=== PATIENT | male | born 1945 | race Caucasian/White ===

== ENCOUNTER 2017-08-02 14:22 | Inpatient (IN) ==
--- NOTE | 2017-08-02 03:13 | Internal Med History&Physical ---
Date of Encounter: 08/02/17 Time of Encounter: 02:30 Assessment and Plan (1) Sepsis Current visit: Yes Status: Acute Patient has fever and leukocytosis. Meet criteria of sepsis. 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 Patient is on chemotherapy now for lung cancer , high risk of infection. - We will treat patient with the Vanco and Zosyn. - IV fluid. Tract lactic acid. - Blood cultures sent from [place] emergency room. Follow-up results Patient is at high risk because he is on vancomycin, need close monitoring. Qualifiers: Sepsis type: sepsis due to unspecified organism Qualified Code(s): A41.9 - Sepsis, unspecified organism (2) Diabetes Current visit: Yes Status: Acute Patient denies diabetes, but his old chart shows hemoglobin A1c 6.7. He is on glipizide on his home medication list (unverified). Consider diabetes. - We will cover patient with sliding-scale, diabetic diet. Qualifiers: Diabetes mellitus type: type 2 Diabetes mellitus complication status: with kidney complications Diabetes mellitus complication detail: with chronic kidney disease Diabetes mellitus afterschool babysitter insulin use: without fci use Chronic kidney disease stage: stage 3 (moderate) Qualified Code(s): E11.22 - Type 2 diabetes mellitus with diabetic chronic kidney disease; N18.3 - Chronic kidney disease, stage 3 (moderate) (3) KELECHI (acute kidney injury) Current visit: Yes Status: Acute Patient has history of CKD. Creatinine level is higher than baseline now. Continue IV fluid. Follow renal function. (4) CAD (coronary artery disease) Current visit: No Status: Acute S/P stent. no chest pain. Continue aspirin and Plavix. Other home medication will be continued after verification Qualifiers: Coronary Disease-Associated Artery/Lesion type: [place] artery [place] vs. transplanted heart: [place] heart Associated angina: with unstable angina Qualified Code(s): I25.110 - Atherosclerotic heart disease of [place] coronary artery with unstable angina pectoris (5) Pneumonia Current visit: No Status: Acute Patient has lung cancer. Probably fever caused by obstructive pneumonia. Chest x-ray shows consolidation. - Continue Vanco and Zosyn - Oxygen supportive treatment. Qualifiers: Pneumonia type: due to Pneumococcus Laterality: unspecified laterality Lung location: unspecified part of lung Qualified Code(s): J13 - Pneumonia due to Streptococcus pneumoniae (6) UTI (urinary tract infection) Current visit: No Status: Acute Asymptomatic. Patient is covered by antibiotics now. Follow urine culture. Qualifiers: Urinary tract infection type: acute cystitis Hematuria presence: without hematuria Qualified Code(s): N30.00 - Acute cystitis without hematuria (7) Lung cancer Current visit: No Status: Chronic Patient is on chemotherapy and is following with oncologist as outpatient now Qualifiers: Laterality: right Lung location: unspecified part of lung Qualified Code( s): C34.91 - Malignant neoplasm of unspecified part of right bronchus or lung (8) DVT prophylaxis Current visit: Yes Status: Acute Heparin subcutaneously Internal Medicine - H&P: HPI Chief complaint: Fever Admitted From: Home Plans for Post Hospital Care: Home History of present illness: Mr. Soto is a 71 year old male with history of CAD S/P 3 stents, CLL, diabetes , stage IV lung cancer presented to [place] emergency room for fever. Patient now complains generalized weakness from today. Has a fever with temperature 103.9. Patient denies cough, sore throat, runny nose, abdominal pain, headache, nausea, vomiting, dysuria, increased frequency or urgency. Patient complain mild shortness of breath but the level is at his baseline. Patient denies altered mental status or confusion. Patient denies chest pain. Patient denies any wound or skin rupture/infection. Past Med Surg Social Fam HX - Past Medical History Medical history: arthritis, cancer, CHF, COPD, coronary artery disease, GERD, hyperlipidemia, hypertension, myocardial infarction, renal disease, other Psychiatric history: no psych history - Past Surgical History Surgical History: appendectomy, other - Social History Smoking Status: Former smoker Smokeless Tobacco Status: No Alcohol use: none Drug use: none - Family History Father Hx Family Endocrine Disorder: Yes (diabetes) Mother Adopted: No Twin of Family Member: Yes, Fraternal Living Status: Still Living Cause of : heart attack Hx Family Cardiac Disorders: Yes Hx Family Respiratory Disorders: No Hx Family Cancer: No Hx Family GI Disorders: No Hx Family Genitourinary Disorders: No Hx Family Endocrine Disorder: Yes (diabetes) Hx Family Musculoskeletal Disorders: No Hx Family Neuromuscular Disorders: No Hx Family Neurologic Disorders: No Hx Family HEENT Disorders: No Hx Family Autoimmune Disorders: No Hx Family Reproductive Disorders: No Hx Family Psychosocial Disorders: No Hx Family Medical Disorders: No Internal Medicine - H&P: Meds Budesonide/Formoterol 160/4.5 [Symbicort] 2 puff IH BID #1 inhaler 07/05/15 [Rx] Clopidogrel [Plavix] 75 mg PO DAILY 07/05/15 [History] Tiotropium [Spiriva] 18 mcg IH DAILY #1 inh 07/05/15 [Rx] dilTIAZem HCl [Cardizem] 60 mg PO Q8HR #60 tablet 07/05/15 [Rx] Ondansetron HCl [Zofran] 4 mg PO Q4-6H PRN 10/17/15 [History] Aspirin 81 mg PO DAILY #30 tab.chew 04/14/16 [Rx] Atorvastatin [Lipitor] 80 mg PO HS #30 tablet 04/14/16 [Rx] Metoprolol [Lopressor] 50 mg PO BID #60 tablet 04/14/16 [Rx] Nitroglycerin 0.4 mg SL Q5MIN PRN #30 tab.subl 04/14/16 [Rx] Benzonatate [Tessalon] 200 mg PO DAILY PRN 06/07/16 [History] Docusate [Colace] 100 mg PO DAILY 06/07/16 [History] Guaifenesin [Mucinex] 600 mg PO BID 06/07/16 [History] Lactobacillus Acidophilus [Acidophilus Probiotic] 1 mg PO DAILY 06/07/16 [ History] Lactulose [Kristalose] 20 gm PO AD 06/07/16 [History] Loratadine [Claritin] 10 mg PO DAILY 06/07/16 [History] Pantoprazole Sodium [Protonix] 40 mg PO DAILY 06/07/16 [History] Polyethylene Glycol 1000 [Polyethylene Glycol] 500 gm PO DAILY 06/07/16 [History ] Albuterol Sulfate [Albuterol Inhaler] 1 puff IH AD 08/03/16 [History] Potassium Chloride [Klor-Con 10] 10 meq PO DAILY 01/27/17 [History] glipiZIDE [Glucotrol] 2.5 mg PO BIDWM 01/27/17 [History] Furosemide [Lasix] 20 mg PO DAILY 03/18/17 [History] LORazepam [Ativan] 1 mg PO TID PRN 07/30/17 [History] Meclizine HCl 25 mg PO Q8H PRN 07/30/17 [History] Aspirin [Lo-Dose Aspirin EC] 81 mg PO DAILY 08/01/17 [History] 3 Allergy/AdvReac Type Severity Reaction Status Date / Time ipratropium [From DuoNeb] AdvReac Vomiting Verified 07/30/17 15:06 roflumilast [From Daliresp] AdvReac Vomiting Verified 07/30/17 15:06 All Systems PM: A 10-system review of systems was performed and is negative for pertinent findings except as documented above in the HPI. - Constitutional Vitals: Temp Pulse Resp BP Pulse Ox 97.6 F 76 20 110/63 96 08/02/17 01:43 08/02/17 01:43 08/02/17 01:43 08/02/17 01:43 08/02/17 01:43 General appearance: Present: A&O X 3, no acute distress, answers questions appropriately - Head Head exam: Present: atraumatic, normocephalic - Eye Eye exam: Present: PERRL, conjuntiva pink, sclera anicteric Pupils: Present: PERRL - Neck Neck exam general surgery: Present: supple, trachea midline. Absent: lymphadenopathy - Respiratory Respiratory exam: Present: CTAB, rhonchi, wheezes (Scattered wheezes and rhonchi bilaterally). Absent: accessory muscle use, rales - Cardiovascular Cardiovascular exam: Present: RRR, +S1, +S2. Absent: diastolic murmur, gallop, rubs, systolic murmur - GI/Abdominal GI/Abdominal exam: Present: normal bowel sounds, soft, no peritoneal signs. Absent: distended, tenderness - Extremities Exam Extremities exam: Present: warm, radial pulses palpable and symmetrical. Absent : calf tenderness, cyanotic, pedal edema - Neurological Exam Neurological exam: Present: CN II-XII intact, oriented X3, no focal deficits. Absent: pronater drift, facial droop, speech deficit - Skin Skin exam: Present: dry, intact
[2017-08-02] MEDS: 0.9 % Sodium Chloride 1,000 ML IVC SCH ×2 (05:23→15:29)
[2017-08-02] MEDS: *HR* Heparin 5,000 UNIT/ML VIAL SQ SCH ×2 (05:24→17:07)
[2017-08-02 06:32] LABS: Basophils % 0.3 %; Eosinophils # 0.3 K/mcL (0.0-0.6); Eosinophils % 2.2 %; Hematocrit 30.8 % (37.5-50.1); Hemoglobin 9.1 g/dL (12.9-16.9); Immature Granulocytes % 0.9 % (0-4); Lymphocytes # 6.7 K/mcL (0.6-4.6); Lymphocytes % 54.6 %; Mean Corpuscular HGB Conc 29.5 g/dL (31.6-35.5); Mean Corpuscular Hemoglobin 25.3 pg (28.0-33.3); Mean Corpuscular Volume 85.8 fL (83.0-100.0); Mean Platelet Volume 9.7 fL (9.4-12.4); Monocytes # 0.5 K/mcL (0.0-1.3); Monocytes % 4.2 %; Neutrophils # 4.6 K/mcL (1.6-8.9); Platelet Count 136 K/mcL (140-400); Red Blood Count 3.59 M/mcL (4.19-5.50); Red Cell Distribution Width 16.4 % (11.5-14.5); Segmented Neutrophils % 37.8 %
[2017-08-02 06:42] LABS: BUN/Creatinine Ratio 20 (6-26); Blood Urea Nitrogen 28 mg/dL (8-26); Calcium 7.8 mg/dL (8.6-10.8); Carbon Dioxide 26 mEq/L (19-29); Chloride 107 mEq/L (98-109); Glucose 88 mg/dL (70-99); Magnesium 1.4 mg/dL (1.6-2.6); Osmolality,Calculated 291 (280-300); Potassium 3.9 mEq/L (3.5-4.5); Sodium 138 mEq/L (136-145); eGFR For African Americans > 60 (> 60); eGFR For Non-African Americans 50 (> 60)
[2017-08-02] MEDS: Insulin LISPRO 300 UNITS/3 ML VIAL SQ SCH ×4 (07:27→21:25)
--- NOTE | 2017-08-02 08:22 | Event Note ---
<Yannick Duran - Last Filed: 08/02/17 09:21> Date of Encounter: 08/02/17 Time of Encounter: 08:39 Patient seen and examined by me. Patient reports He felt weak, had a fever, and malaise. He was seen at [place] [facility] and transferred to [facility] for further treatment and work up. Per daughter Patient was recently on steroids a couple weeks ago, was on levaquin until Wednesday for a pneumonia, and was last seen by oncology at the beginning of the month. Patient reports feeling a bit better. No more fevers (was 103.9 at [place]). Patient on Vanc and Zosyn. Bcx drawn at [place]. On exam Lungs scattered rhonnchi and weezes. heart RRR no m/g/r. No pedal edema. L pupil is larger than R pupil this is an old change 2/2 cataract surgery on L eye. Eyes reactive to light. Abd: +BS, soft nontender. Continue current plan. Will restart patient's home medications. <Juan Monaco - Last Filed: 08/02/17 15:49> Date of Encounter: 08/02/17 Mr. Soto was admitted earlier today with fever presumed associated with pneumonia and/or UTI. His BP has been high at times. Exam Comfortable currently Scant wheeze Agree with plan as outlined so far.
[2017-08-02] MEDS: Magnesium Oxide 400 MG TABLET PO SCH ×2 (08:25→21:19)
[2017-08-02] MEDS: Aspirin 81 MG TAB.CHEW PO SCH (08:25)
[2017-08-02] MEDS: *HR* LORazepam 0.5 MG TABLET PO PRN ×2 (10:35→17:07)
[~2017-08-02 14:22] MED LIST: *HR* Dextrose 50 % in Water (Syg) 50 ML SYRINGE IVP PRN; Acetaminophen 325 MG TABLET PO PRN; D5% in Water 1,000 ML IVC PRN; Dextrose Gel 15 GM PO PRN; Naloxone 0.4 MG/ML INJ IVP PRN; Piperacillin/Tazobactam 3.375 GM in D5% in Water (Mini-Bag+) 100 ML IVPB SCH; Vancomycin 1,250 MG in D5% in Water 250 ML IVPB SCH
[2017-08-02] MEDS: Piperacillin/Tazobactam 3.375 GM in D5% in Water (Mini-Bag+) 100 ML IVPB SCH (15:28)
[2017-08-02] MEDS: Tiotropium 18 MCG inhalation IH SCH ×2 (16:15→17:32)
[2017-08-02] MEDS: Budesonide/Formoterol 160/4.5 MDI IH SCH (21:05)
[2017-08-02] MEDS: Acetaminophen 325 MG TABLET PO PRN (21:19)
[2017-08-02] MEDS: Vancomycin 1,250 MG in D5% in Water 250 ML IVPB SCH (21:20)
[2017-08-03] MEDS: Piperacillin/Tazobactam 3.375 GM in D5% in Water (Mini-Bag+) 100 ML IVPB SCH ×3 (00:06→15:30)
[2017-08-03] MEDS: *HR* Heparin 5,000 UNIT/ML VIAL SQ SCH (06:44)
[2017-08-03 07:20] LABS: BUN/Creatinine Ratio 20 (6-26); Blood Urea Nitrogen 25 mg/dL (8-26); Calcium 8.7 mg/dL (8.6-10.8); Carbon Dioxide 23 mEq/L (19-29); Chloride 106 mEq/L (98-109); Glucose 129 mg/dL (70-99); Magnesium 1.6 mg/dL (1.6-2.6); Osmolality,Calculated 292 (280-300); Potassium 4.5 mEq/L (3.5-4.5); Sodium 138 mEq/L (136-145); eGFR For African Americans > 60 (> 60); eGFR For Non-African Americans 57 (> 60)
[2017-08-03 07:29] LABS: Hematocrit 31.8 % (37.5-50.1); Hemoglobin 9.6 g/dL (12.9-16.9); Mean Corpuscular HGB Conc 30.2 g/dL (31.6-35.5); Mean Corpuscular Hemoglobin 25.4 pg (28.0-33.3); Mean Corpuscular Volume 84.1 fL (83.0-100.0); Mean Platelet Volume 9.6 fL (9.4-12.4); Platelet Count 149 K/mcL (140-400); Red Blood Count 3.78 M/mcL (4.19-5.50); Red Cell Distribution Width 16.6 % (11.5-14.5)
[2017-08-03] MEDS: Aspirin 81 MG TAB.CHEW PO SCH (07:29)
[2017-08-03] MEDS: Magnesium Oxide 400 MG TABLET PO SCH ×2 (07:29→22:31)
[2017-08-03] MEDS: Tiotropium 18 MCG inhalation IH SCH (07:48)
[2017-08-03] MEDS: Budesonide/Formoterol 160/4.5 MDI IH SCH ×2 (07:49→20:11)
[2017-08-03] MEDS: Insulin LISPRO 300 UNITS/3 ML VIAL SQ SCH ×3 (07:59→16:47)
[2017-08-03 09:00] LABS: Eosinophils # 0.3 K/mcL (0.0-0.6); Lymphocytes # 6.1 K/mcL (0.6-4.6); Monocytes # 1.5 K/mcL (0.0-1.3); Neutrophils # 6.7 K/mcL (1.6-8.9)
[2017-08-03 09:02] LABS: Platelet Estimate Normal (Normal)
[2017-08-03 09:03] LABS: Anisocytosis 1+ (Not Present); Poikilocytosis 1+ (Not Present)
[2017-08-03] MEDS: *HR* LORazepam 0.5 MG TABLET PO SCH ×4 (09:03→22:31)
--- NOTE | 2017-08-03 09:22 | Internal Med Progress Note ---
<TerencekwesigriselYannick guadarrama - Last Filed: 08/03/17 16:35> Date of Encounter: 08/03/17 Time of Encounter: 09:00 - Assessment and plan (1) Sepsis Current Visit: Yes Status: Acute Assessment and plan: Present on admission. Has chronic leukocytosis due to CLL, has been tachycardic and febrile. concern for pneumonia or UTI on admission, appearing less likely now. Patient on chemotherapy for Lung cancer Continue vanc and zosyn BCx preliminarily negaitve. Ucx negative. If remains afebrile till tomorrow will discharge home. Qualifiers: Sepsis type: sepsis due to unspecified organism Qualified Code(s): A41.9 - Sepsis, unspecified organism (2) UTI (urinary tract infection) Current Visit: No Status: Acute Assessment and plan: Present on admission asymptomatic per patient UA showed: Small leuk esterase, 3-5 RBC, 5-15 WBC, moderate Bacteria. Ucx: Negative. No growth. Patient on Vanc and Zosyn Qualifiers: Urinary tract infection type: acute cystitis Hematuria presence: without hematuria Qualified Code(s): N30.00 - Acute cystitis without hematuria (3) Pneumonia Current Visit: No Status: Acute Assessment and plan: Present upon admission likely post obstructive 2/2 lung CA CXR shows: Subtle right apical consolidation corresponding to findings on prior CT as well as somewhat less conspicuous nodular lesion of the left upper lobe. Chronic interstitial opacities bilaterally. No new pulmonary opacities are identified. Continue abx vanc and zosyn for presumptive penumonia Qualifiers: Pneumonia type: due to unspecified organism Laterality: unspecified laterality Lung location: unspecified part of lung Qualified Code(s): J18.9 - Pneumonia, unspecified organism (4) Diabetes Current Visit: Yes Status: Acute Assessment and plan: Chronic, Stable. Continue SSI diabetic diet Acuchecks. Qualifiers: Diabetes mellitus type: type 2 Diabetes mellitus complication status: with kidney complications Diabetes mellitus complication detail: with chronic kidney disease Diabetes mellitus supervisor intermediates insulin use: without jail use Chronic kidney disease stage: stage 3 (moderate) Qualified Code(s): E11.22 - Type 2 diabetes mellitus with diabetic chronic kidney disease; N18.3 - Chronic kidney disease, stage 3 (moderate) (5) KELECHI (acute kidney injury) Current Visit: Yes Status: Acute Assessment and plan: resolved Hx of CKD. Cr higher than baseline. Baseline 1.3, 1.6 on admission, now 1.25 (6) CAD (coronary artery disease) Current Visit: No Status: Acute Assessment and plan: Chronic, Stable No chest pain. Continue home meds Qualifiers: Coronary Disease-Associated Artery/Lesion type: [place] artery [place] vs. transplanted heart: [place] heart Associated angina: with unstable angina Qualified Code(s): I25.110 - Atherosclerotic heart disease of [place] coronary artery with unstable angina pectoris (7) Lung cancer Current Visit: No Status: Chronic Assessment and plan: On chemotherapy following with oncology Qualifiers: Laterality: right Lung location: unspecified part of lung Qualified Code( s): C34.91 - Malignant neoplasm of unspecified part of right bronchus or lung (8) CLL (chronic lymphocytic leukemia) Current Visit: Yes Status: Acute Assessment and plan: Chronic follows with oncology. - Subjective Interval history: Patient reports feeling ok. He denies CP, SOB, Abd pain, Fevers, chills. Patient was febrile and tachycardic yesterday afternoon. Patient wants to go home. Explained that he needs to stay because he has been febrile and tachycardic and he expressed understanding. I have made his ativan standing as he is very tremulous and anxious. - Constitutional Vitals: Temp Pulse Resp BP Pulse Ox 97.7 F 81 18 144/69 94 08/03/17 07:03 08/03/17 07:03 08/03/17 07:50 08/03/17 07:03 08/03/17 07:50 General appearance: Present: A&O X 3, no acute distress, answers questions appropriately - Head Head exam: Present: atraumatic, normocephalic - Eye Eye exam: Present: conjuntiva pink, sclera anicteric Additional comments: L Pupil > R pupil. Chronic 2/2 cataract surgery - Neck Neck exam general surgery: Present: supple, trachea midline - Respiratory Respiratory exam: Present: wheezes. Absent: accessory muscle use, rales, rhonchi - Cardiovascular Cardiovascular exam: Present: RRR, +S1, +S2. Absent: diastolic murmur, gallop, rubs, systolic murmur - GI/Abdominal GI/Abdominal exam: Present: normal bowel sounds, soft, no peritoneal signs. Absent: distended, tenderness - Extremities Exam Extremities exam: Present: warm. Absent: calf tenderness, cyanotic, pedal edema - Neurological Exam Neurological exam: Present: alert, oriented X3. Absent: facial droop, speech deficit - Skin Skin exam: Present: dry, intact Internal Medicine: Result - Labs CBC & Chem 7: 08/03/17 07:00 08/03/17 07:00 Labs: Short CBC 08/03/17 Range/Units 07:00 WBC 14.5 H (4.3-11.1) K/mcL Hgb 9.6 L (12.9-16.9) g/dL Hct 31.8 L (37.5-50.1) % Plt Count 149 (140-400) K/mcL Neutrophils # 6.7 (1.6-8.9) K/mcL BMP 08/03/17 07:00 Sodium 138 Potassium 4.5 Chloride 106 Carbon Dioxide 23 BUN 25 Creatinine 1.25 Glucose 129 H Calcium 8.7 Consult Discharge Plan - Plan Referrals: Gideon Eaton MD [Primary Care Provider] - (Web request sent 08/02/17) <Juan Monaco - Last Filed: 08/03/17 18:41> Date of Encounter: 08/03/17 - Assessment and plan (1) Pneumonia Current Visit: No Status: Acute Qualifiers: Pneumonia type: due to other aerobic Gram-negative bacteria Laterality: unspecified laterality Lung location: unspecified part of lung Qualified Code(s): J15.6 - Pneumonia due to other aerobic Gram-negative bacteria (2) UTI (urinary tract infection) Current Visit: No Status: Acute Qualifiers: Urinary tract infection type: acute cystitis Hematuria presence: without hematuria Qualified Code(s): N30.00 - Acute cystitis without hematuria (3) CLL (chronic lymphocytic leukemia) Current Visit: Yes Status: Acute (4) Diabetes Current Visit: Yes Status: Acute Qualifiers: Diabetes mellitus type: type 2 Diabetes mellitus complication status: with kidney complications Diabetes mellitus complication detail: with chronic kidney disease Diabetes mellitus jail insulin use: without jail use Chronic kidney disease stage: stage 3 (moderate) Qualified Code(s): E11.22 - Type 2 diabetes mellitus with diabetic chronic kidney disease; N18.3 - Chronic kidney disease, stage 3 (moderate) (5) CAD (coronary artery disease) Current Visit: No Status: Acute Qualifiers: Coronary Disease-Associated Artery/Lesion type: [place] artery [place] vs. transplanted heart: [place] heart Associated angina: without angina Qualified Code(s): I25.10 - Atherosclerotic heart disease of [place] coronary artery without angina pectoris - Constitutional Vitals: Temp Pulse Resp BP Pulse Ox 99.1 F 101 17 153/71 91 08/03/17 16:26 08/03/17 16:26 08/03/17 16:26 08/03/17 16:26 08/03/17 16:26 Internal Medicine: Result - Labs CBC & Chem 7: 08/03/17 07:00 08/03/17 07:00 Labs: Short CBC 08/03/17 Range/Units 07:00 WBC 14.5 H (4.3-11.1) K/mcL Hgb 9.6 L (12.9-16.9) g/dL Hct 31.8 L (37.5-50.1) % Plt Count 149 (140-400) K/mcL Neutrophils # 6.7 (1.6-8.9) K/mcL BMP 08/03/17 07:00 Sodium 138 Potassium 4.5 Chloride 106 Carbon Dioxide 23 BUN 25 Creatinine 1.25 Glucose 129 H Calcium 8.7 - Attending Attestation I examined this patient and my medical decision-making was reviewed with the Resident Physician on 08/03/17. I agree with the documented findings, disposition and treatment plan as described except to the extent set forth below. Mr Soto is currently in observation due to fever and presumptive pneumonia in the setting of lung cancer. He remains moderate to high risk due to potential for worsening respiratory status. Mr Soto feels OK. He wants to go home. He has not had fever since yesterday. Cultures pending. No chills. No CP or SOB. Exam Alert. Comfortable Mucus membranes dry Heart reg No wheeze. Lungs diminished. Abd soft Tremor present. I/P 1. Fever 2. Pneumonia Further diagnoses and plan as above.
[2017-08-03] MEDS ORDERED: *HR* LORazepam 0.5 MG TABLET PO PRN ×2 (13:27→13:30)
[2017-08-03] MEDS: Acetaminophen 325 MG TABLET PO PRN ×2 (15:30→22:36)
[2017-08-03] MEDS: Vancomycin 1,250 MG in D5% in Water 250 ML IVPB SCH (22:34)
[2017-08-04] MEDS: Piperacillin/Tazobactam 3.375 GM in D5% in Water (Mini-Bag+) 100 ML IVPB SCH ×3 (00:31→14:40)
[2017-08-04] MEDS: Insulin LISPRO 300 UNITS/3 ML VIAL SQ SCH ×4 (00:35→17:23)
[2017-08-04 04:48] LABS: Basophils % 0.3 %; Eosinophils # 0.2 K/mcL (0.0-0.6); Eosinophils % 1.9 %; Hematocrit 28.6 % (37.5-50.1); Hemoglobin 8.7 g/dL (12.9-16.9); Immature Granulocytes % 0.6 % (0-4); Lymphocytes # 5.7 K/mcL (0.6-4.6); Lymphocytes % 49.7 %; Mean Corpuscular HGB Conc 30.4 g/dL (31.6-35.5); Mean Corpuscular Hemoglobin 25.1 pg (28.0-33.3); Mean Corpuscular Volume 82.4 fL (83.0-100.0); Mean Platelet Volume 10.1 fL (9.4-12.4); Monocytes # 0.5 K/mcL (0.0-1.3); Monocytes % 3.9 %; Platelet Count 167 K/mcL (140-400); Red Blood Count 3.47 M/mcL (4.19-5.50); Red Cell Distribution Width 16.6 % (11.5-14.5); Segmented Neutrophils % 43.6 %
[2017-08-04 04:59] LABS: BUN/Creatinine Ratio 21 (6-26); Blood Urea Nitrogen 23 mg/dL (8-26); Calcium 8.9 mg/dL (8.6-10.8); Carbon Dioxide 27 mEq/L (19-29); Chloride 104 mEq/L (98-109); Glucose 140 mg/dL (70-99); Magnesium 1.5 mg/dL (1.6-2.6); Osmolality,Calculated 290 (280-300); Potassium 4.4 mEq/L (3.5-4.5); Sodium 137 mEq/L (136-145); eGFR For African Americans > 60 (> 60); eGFR For Non-African Americans > 60 (> 60)
[2017-08-04 05:14] LABS: Large Platelets Present (Not Present); Platelet Estimate Normal (Normal); Reactive Lymphocytes Present (Not Present)
[2017-08-04] MEDS: *HR* Heparin 5,000 UNIT/ML VIAL SQ SCH ×2 (06:11→07:32)
[2017-08-04] MEDS: Tiotropium 18 MCG inhalation IH SCH (08:19)
[2017-08-04] MEDS: Budesonide/Formoterol 160/4.5 MDI IH SCH (08:20)
[2017-08-04] MEDS: Aspirin 81 MG TAB.CHEW PO SCH (09:21)
[2017-08-04] MEDS: Magnesium Oxide 400 MG TABLET PO SCH (09:22)
[2017-08-04] MEDS: *HR* LORazepam 0.5 MG TABLET PO SCH ×3 (09:24→17:14)
--- NOTE | 2017-08-04 10:11 | Discharge Summary ---
<Yannick Duran - Last Filed: 08/04/17 16:49> Date of Encounter: 08/04/17 Time of Encounter: 09:30 - Discharge Diagnosis (1) Sepsis Priority: Primary Status: Acute Qualifiers: Sepsis type: sepsis due to unspecified organism Qualified Code(s): A41.9 - Sepsis, unspecified organism (2) UTI (urinary tract infection) Priority: Secondary Status: Acute Qualifiers: Urinary tract infection type: acute cystitis Hematuria presence: without hematuria Qualified Code(s): N30.00 - Acute cystitis without hematuria (3) Pneumonia Priority: Secondary Status: Acute Qualifiers: Pneumonia type: due to other aerobic Gram-negative bacteria Laterality: unspecified laterality Lung location: unspecified part of lung Qualified Code(s): J15.6 - Pneumonia due to other aerobic Gram-negative bacteria (4) Diabetes Priority: Secondary Status: Chronic Qualifiers: Diabetes mellitus type: type 2 Diabetes mellitus complication status: with kidney complications Diabetes mellitus complication detail: with chronic kidney disease Diabetes mellitus [facility] insulin use: without [facility] use Chronic kidney disease stage: stage 3 (moderate) Qualified Code(s): E11.22 - Type 2 diabetes mellitus with diabetic chronic kidney disease; N18.3 - Chronic kidney disease, stage 3 (moderate) (5) KELECHI (acute kidney injury) Priority: Secondary Status: Resolved (6) CAD (coronary artery disease) Priority: Secondary Status: Chronic Qualifiers: Coronary Disease-Associated Artery/Lesion type: [place] artery [place] vs. transplanted heart: [place] heart Associated angina: without angina Qualified Code(s): I25.10 - Atherosclerotic heart disease of [place] coronary artery without angina pectoris (7) Lung cancer Priority: Secondary Status: Chronic Qualifiers: Laterality: right Lung location: unspecified part of lung Qualified Code( s): C34.91 - Malignant neoplasm of unspecified part of right bronchus or lung (8) CLL (chronic lymphocytic leukemia) Priority: Secondary Status: Chronic - Discharge Medications Prescriptions: Doxycycline 100 mg PO BID #14 Fiplxyxgilok-Mqez-Anehlqjk,Iso [Zosyn 3.375 gm/50 ml Galaxy] 3.375 gm IV Q8H # 21 froz.piggy Home Medications: Budesonide/Formoterol 160/4.5 [Symbicort] 2 puff IH BID #1 inhaler 07/05/15 [Rx] Clopidogrel [Plavix] 75 mg PO DAILY 07/05/15 [History] Tiotropium [Spiriva] 18 mcg IH DAILY #1 inh 07/05/15 [Rx] dilTIAZem HCl [Cardizem] 60 mg PO Q8HR #60 tablet 07/05/15 [Rx] Ondansetron HCl [Zofran] 4 mg PO Q4-6H PRN 10/17/15 [History] Atorvastatin [Lipitor] 80 mg PO HS #30 tablet 04/14/16 [Rx] Metoprolol [Lopressor] 50 mg PO BID #60 tablet 04/14/16 [Rx] Nitroglycerin 0.4 mg SL Q5MIN PRN #30 tab.subl 04/14/16 [Rx] Docusate [Colace] 100 mg PO DAILY 06/07/16 [History] Guaifenesin [Mucinex] 600 mg PO BID 06/07/16 [History] Lactobacillus Acidophilus [Acidophilus Probiotic] 1 mg PO DAILY 06/07/16 [ History] Lactulose [Kristalose] 20 gm PO AD 06/07/16 [History] Loratadine [Claritin] 10 mg PO DAILY 06/07/16 [History] Pantoprazole Sodium [Protonix] 40 mg PO DAILY 06/07/16 [History] Polyethylene Glycol 1000 [Polyethylene Glycol] 500 gm PO DAILY 06/07/16 [History ] Albuterol Sulfate [Albuterol Inhaler] 1 puff IH AD 08/03/16 [History] Potassium Chloride [Klor-Con 10] 10 meq PO DAILY 01/27/17 [History] glipiZIDE [Glucotrol] 2.5 mg PO BIDWM 01/27/17 [History] Furosemide [Lasix] 20 mg PO DAILY 03/18/17 [History] LORazepam [Ativan] 1 mg PO TID PRN 07/30/17 [History] Aspirin [Lo-Dose Aspirin EC] 81 mg PO DAILY 08/01/17 [History] Doxycycline 100 mg PO BID #14 08/04/17 [Rx] Nxforqytrmin-Jmfu-Rtzchgwj,Iso [Zosyn 3.375 gm/50 ml Galaxy] 3.375 gm IV Q8H # 21 froz.piggy 08/04/17 [Rx] Allergies/Adverse Reactions: 3 Allergy/AdvReac Type Severity Reaction Status Date / Time ipratropium [From DuoNeb] AdvReac Vomiting Verified 07/30/17 15:06 roflumilast [From Daliresp] AdvReac Vomiting Verified 07/30/17 15:06 Procedures/tests Complete & Pending: CXR: FINDINGS: The cardiac silhouette is stable in appearance. Previously described masslike lesion within the left upper lobe which was identified on prior CT dated May 04, 2017 and seen on prior chest radiograph is somewhat less conspicuous on today's exam. Masslike consolidation in the right upper lobe compatible with right apical mass also subtle but grossly similar in appearance. There is mild central pulmonary vascular congestion. Interstitial opacities noted throughout the lungs bilaterally. No pleural effusion identified. No evidence for pneumothorax. No acute osseous abnormality. XR/XR chest 1V portable IMPRESSION: 1. Subtle right apical consolidation corresponding to findings on prior CT as well as somewhat less conspicuous nodular lesion of the left upper lobe. Chronic interstitial opacities bilaterally. No new pulmonary opacities are identified. Date of admission: 08/02/17 01:29 Primary care physician: Gideon Eaton MD Discharging clinician: Yannick Duran Anticipated date of discharge: 08/04/17 - Patient Status Disposition: Home Health Service Condition: Fair Functional capacity at discharge: uses cane/walker Overall status at discharge: patient is progressing back to baseline - Discharge Instructions Instructions: Sepsis (DC) Follow Up With: Gideon Eaton MD [Primary Care Provider] - (Web request sent 08/02/17) Additional Instructions: Please follow up with your primary care provider within 1 week. Please follow up with your oncologist. Please resume all your home medications. Please take your antibiotics as prescribed the Doxycycline pill and the IV Zosyn. Please return to the hospital if you have any new or worsening symptoms. - Diet and Activity Activity: resume usual activities as tolerated Diet: advance to your usual diet Interval History: Patient reports feeling well. He denies Chest pain, SOB, Abd pain, Nausea, Vomiting, Diarrhea, Constipation, Dysuria, frequency. He is eager to go home. Hospital course: Mr. Soto is a 71 year old male with history of CAD S/P 3 stents, CLL, diabetes , CHF, COPD, GERD, hyperlipidemia, hypertension, myocardial infarction, CKD , stage IV lung cancer currently receiving chemotherapy presented to [facility] emergency room for fever. He was transferred to [facility] for further work up and treatment. Patient's X ray at [facility] ultimately did not show any new consolidation from prior x rays. His urine analysis had leuk esterase and some bacteria so was cultured but ultimately no pathogens grew. Patient had Bcx drawn at [facility] which also have had no growth to date. Patient was started on Vanc and Zosyn. Patient spiked another fever on 08/02 so a second set of blood cultures were drawn. Those are negative to date. Patient has been afebrile since 08/02. Patient was recently treated with levaquin prior to hospitalization for pneumonia that he completed on 07/29. In light of this recent treatment the decision was made to send patient home on a course of Zosyn and doxycycline. - Time Spent with Patient Total time spent providing and/or coordinating discharge services: 40 minutes. - Constitutional Vitals: Temp Pulse Resp BP Pulse Ox 97.8 F 102 18 125/60 90 08/04/17 06:52 08/04/17 06:52 08/04/17 08:19 08/04/17 06:52 08/04/17 08:19 General appearance: Present: A&O X 3, no acute distress, answers questions appropriately - Head Head exam: Present: atraumatic, normocephalic - Eye Eye exam: Present: conjuntiva pink, sclera anicteric Additional comments: L Pupil > R pupil. Chronic 2/2 cataract surgery - Neck Neck exam general surgery: Present: supple, trachea midline - Respiratory Respiratory exam: Present: decreased breath sounds, CTAB. Absent: accessory muscle use, rales, rhonchi, wheezes - Cardiovascular Cardiovascular exam: Present: RRR, +S1, +S2. Absent: diastolic murmur, gallop, rubs, systolic murmur - GI/Abdominal GI/Abdominal exam: Present: normal bowel sounds, soft, no peritoneal signs. Absent: distended, tenderness - Extremities Exam Extremities exam: Present: warm, radial pulses palpable and symmetrical. Absent : calf tenderness, cyanotic, pedal edema - Neurological Exam Neurological exam: Present: alert, oriented X3. Absent: facial droop, speech deficit Additional comments: Tremor present - Skin Skin exam: Present: dry, intact, warm <Juan Monaco - Last Filed: 08/04/17 17:56> Date of Encounter: 08/04/17 - Discharge Diagnosis (1) Pneumonia Priority: Primary Status: Acute Qualifiers: Pneumonia type: due to other aerobic Gram-negative bacteria Laterality: unspecified laterality Lung location: unspecified part of lung Qualified Code(s): J15.6 - Pneumonia due to other aerobic Gram-negative bacteria (2) UTI (urinary tract infection) Status: Acute Qualifiers: Urinary tract infection type: acute cystitis Hematuria presence: without hematuria Qualified Code(s): N30.00 - Acute cystitis without hematuria (3) CLL (chronic lymphocytic leukemia) Status: Chronic (4) Diabetes Status: Chronic Qualifiers: Diabetes mellitus type: type 2 Diabetes mellitus complication status: with kidney complications Diabetes mellitus complication detail: with chronic kidney disease Diabetes mellitus [facility] insulin use: without [facility] use Chronic kidney disease stage: stage 3 (moderate) Qualified Code(s): E11.22 - Type 2 diabetes mellitus with diabetic chronic kidney disease; N18.3 - Chronic kidney disease, stage 3 (moderate) (5) CAD (coronary artery disease) Status: Chronic Qualifiers: Coronary Disease-Associated Artery/Lesion type: [place] artery [place] vs. transplanted heart: [place] heart Associated angina: without angina Qualified Code(s): I25.10 - Atherosclerotic heart disease of [place] coronary artery without angina pectoris Date of admission: 08/04/17 12:56 Primary care physician: Gideon Eaton MD Consults: 08/04/17 11:19 Consult to Invasive Line Access Team [CONS] Stat Reason for Consult: Midline Line Type: Midline 08/04/17 12:34 Consult to Invasive Line Access Team [CONS] Routine Reason for Consult: Home atbs. Zosyn Line Type: EPIV Hospital course: Mr. Soto is a 71 year old male - Time Spent with Patient Total time spent providing and/or coordinating discharge services: - Constitutional Vitals: Temp Pulse Resp BP Pulse Ox 98.5 F 82 18 122/72 90 08/04/17 10:40 08/04/17 10:40 08/04/17 10:40 08/04/17 10:40 08/04/17 10:40 - Attending Attestation I examined this patient and my medical decision-making was reviewed with the Resident Physician on 08/04/17. I agree with the documented findings, disposition and treatment plan as described except to the extent set forth below. Mr Soto has been admitted for fever presumed due to pneumonia or UTI. He has hx of lung cancer as well as CLL. He is now afebrile and vitals are stable. He feels OK and is ready for discharge home. He will be going on 1 week more of IV vanc with PO doxy. Exam Alert. Comfortable Heart reg Diminished breath sounds Plan D/C home today on one more week IV Zosyn with PO doxy Follow up with PCP and heme/onc
[2017-08-04] MEDS ORDERED: Doxycycline 100 MG CAPSULE PO SCH (11:30)
[2017-08-04] MEDS ORDERED: Aminoglycoside Consult 1 EACH MC ONE (14:28)
[2017-08-04 15:38] VITALS: BP 148/72
--- NOTE | 2017-08-04 16:04 | Physician Discharge Referral ---
Home Health/Hosp Referral Info Transfer to: Home Health Provider in Charge Post Discharge: PCP - Diagnosis (1) Sepsis Priority: Primary Status: Acute (2) UTI (urinary tract infection) Priority: Secondary Status: Acute (3) Pneumonia Priority: Secondary Status: Acute (4) Diabetes Priority: Secondary Status: Acute (5) KELECHI (acute kidney injury) Priority: Secondary Status: Acute (6) CAD (coronary artery disease) Priority: Secondary Status: Acute (7) Lung cancer Priority: Secondary Status: Chronic (8) CLL (chronic lymphocytic leukemia) Priority: Secondary Status: Acute - Respiratory Orders Oxygen / L per min (2-4 L) Smoking Cessation: Smoking cessation has been advised. For more information, call the [place] Tobacco Quit Line at 6-461-FGIX-NOW. - Activity Activity Orders: Walker - Services Needed Following services are medically necessary services: Nursing, Home Health Aide, Home Infusion - Transfer Medications Prescriptions: Doxycycline 100 mg PO BID #14 Yppmonykxlxl-Lcav-Yvfwgcuh,Iso [Zosyn 3.375 gm/50 ml Galaxy] 3.375 gm IV Q8H # 21 froz.piggy Home Medications: Budesonide/Formoterol 160/4.5 [Symbicort] 2 puff IH BID #1 inhaler 07/05/15 [Rx] Clopidogrel [Plavix] 75 mg PO DAILY 07/05/15 [History] Tiotropium [Spiriva] 18 mcg IH DAILY #1 inh 07/05/15 [Rx] dilTIAZem HCl [Cardizem] 60 mg PO Q8HR #60 tablet 07/05/15 [Rx] Ondansetron HCl [Zofran] 4 mg PO Q4-6H PRN 10/17/15 [History] Atorvastatin [Lipitor] 80 mg PO HS #30 tablet 04/14/16 [Rx] Metoprolol [Lopressor] 50 mg PO BID #60 tablet 04/14/16 [Rx] Nitroglycerin 0.4 mg SL Q5MIN PRN #30 tab.subl 04/14/16 [Rx] Docusate [Colace] 100 mg PO DAILY 06/07/16 [History] Guaifenesin [Mucinex] 600 mg PO BID 06/07/16 [History] Lactobacillus Acidophilus [Acidophilus Probiotic] 1 mg PO DAILY 06/07/16 [ History] Lactulose [Kristalose] 20 gm PO AD 06/07/16 [History] Loratadine [Claritin] 10 mg PO DAILY 06/07/16 [History] Pantoprazole Sodium [Protonix] 40 mg PO DAILY 06/07/16 [History] Polyethylene Glycol 1000 [Polyethylene Glycol] 500 gm PO DAILY 06/07/16 [History ] Albuterol Sulfate [Albuterol Inhaler] 1 puff IH AD 08/03/16 [History] Potassium Chloride [Klor-Con 10] 10 meq PO DAILY 01/27/17 [History] glipiZIDE [Glucotrol] 2.5 mg PO BIDWM 01/27/17 [History] Furosemide [Lasix] 20 mg PO DAILY 03/18/17 [History] LORazepam [Ativan] 1 mg PO TID PRN 07/30/17 [History] Aspirin [Lo-Dose Aspirin EC] 81 mg PO DAILY 08/01/17 [History] Doxycycline 100 mg PO BID #14 08/04/17 [Rx] Qevpjhidbmpx-Ezrw-Plmeixfi,Iso [Zosyn 3.375 gm/50 ml Galaxy] 3.375 gm IV Q8H # 21 froz.piggy 08/04/17 [Rx] Allergies/Adverse Reactions: 3 Allergy/AdvReac Type Severity Reaction Status Date / Time ipratropium [From DuoNeb] AdvReac Vomiting Verified 07/30/17 15:06 roflumilast [From Daliresp] AdvReac Vomiting Verified 07/30/17 15:06 Certification: Further, I certify that my clinical findings support that this patient is homebound (i.e. absences from home require considerable and taxing effort and are for medical reasons or syn[employer] services or infrequently or short duration when for other reasons) because: Homebound Reason: Patient requires assistance of a person or device to safely leave home, Leaving home requires considerable and taxing effort due to condition, Severity of cardiac or pulmonary status limits activity tolerance Attestation: My signature below is to certify that this patient is under my care and that I, or nurse practitioner, or a physician's training and development assistant working with me, has a face-to -face encounter with this patient.
[2017-08-04] MEDS ORDERED: *HR* Heparin 5,000 UNIT/ML VIAL SQ SCH (18:00)
== END 2017-08-04 18:22 | disposition home health service (06) | DRG 871 ==
LOC: 2ANU
PROVIDERS: ADMIT Internal Medicine; ATTEND Internal Medicine